=== PATIENT | female | born 1975 | race Caucasian/White ===

== ENCOUNTER 2017-06-24 01:54 | Emergency (ER) | payer BC ==
[2017-06-24] MEDS ORDERED: Sodium Chloride 0.9% 1,000 ML PRIMARY IV ONE ×2 (02:23→03:35)
[2017-06-24] MEDS ORDERED: NORMAL SALINE 10 ML SYRINGE FLUSH IVP PRN (02:23)
[2017-06-24] MEDS ORDERED: KETOROLAC 30 MG/1 ML VIAL IVP ONE (02:23)
[2017-06-24] MEDS ORDERED: TAMSULOSIN 0.4 MG CAPSULE PO ONE (02:25)
[2017-06-24 02:41] LABS: BASOPHILS # (AUTO) 0.07 10*3/UL; BASOPHILS % (AUTO) 0.6 % (0-1); EOSINOPHILS # (AUTO) 0.32 10*3/UL; HEMATOCRIT 39.8 % (37.0-47.0); HEMOGLOBIN 13.3 g/dL (12.0-16.0); LYMPHOCYTES # (AUTO) 1.59 10*3/uL; MEAN CORPUSCULAR HGB CONC 33.4 g/dL (33-37); MEAN CORPUSCULAR VOLUME 89.6 FL (81-99); MEAN PLATELET VOLUME 8.6 FL (7.4-12.2); MONOCYTES # (AUTO) 0.68 10*3/UL (0.3-0.8); MONOCYTES % (AUTO) 6.3 % (5-15); NEUTROPHILS # (AUTO) 8.14 10*3/UL; NEUTROPHILS % (AUTO) 75.2 % (50-80); RED BLOOD COUNT 4.44 10^6/uL (4.20-5.40)
[2017-06-24 02:46] LABS: PLATELET MORPHOLOGY COMMENT NORMAL MORPHOLOGY (NORM); RBC MORPHOLOGY COMMENT NORMAL MORPHOLOGY (NORM); WBC MORPHOLOGY COMMENT NORMAL MORPHOLOGY (NORM)
[2017-06-24 02:50] LABS: BLOOD UREA NITROGEN 21 mg/dL (7-22); CALCIUM 8.7 mg/dL (8.7-10.7); EST GLOMERULAR FILTRATION > 60 (>60 ml/min/1.73m(2))
[2017-06-24 03:08] VITALS: RESP 16; TEMP 98.1
--- NOTE | 2017-06-24 03:51 | DI ---
HISTORY: Low back pain. COMPARISON: None available. TECHNIQUE: Contiguous axial unenhanced images of the abdomen and pelvis were obtained from the lung bases through the ischial tuberosities. The images were then submitted for interpretation. FINDINGS: The heart is within normal limits. No acute pathology is seen at the lung bases. The liver is grossly unremarkable. The spleen is within normal limits. Multiple layering peripheral ly calcified gallstones are seen in the gallbladder ranging in size from punctate up to 8 mm. There is no evidence of acute cholecystitis. There is no biliary ductal dilatation. The pancreas and adre nal glands are unremarkable. The kidneys are normal in size and shape. There are at least 2 nonobst ructing calculi in the left kidney ranging in size from punctate up to 2 mm. There is mild asymmetri c pelvocaliectasis. Additionally, there is asymmetric left ureteral prominence and surrounding fat s tranding, raising the possibility of a recently passed stone. There is a faint punctate hyperdensity at the expected location of the left ureterovesical junction, which could reflect a calculus (series 2, image 134). Otherwise, no ureteral or urinary bladder calculi are seen. Several faint punctate hyperdensities are seen in the midportion of the right kidney, which could reflect nonobstructing nicole culi; otherwise, the right kidney is grossly unremarkable. The imaged bowel, mesentery, and omentum are unremarkable without evidence of obstruction or perforat ion. The appendix is not clearly identified, though there is no secondary evidence of acute appendic itis. There is no lymphadenopathy by size criteria. There is no ascites. No acute skeletal pathology is seen. IMPRESSION: 1. Constellation of findings in the left kidney and ureter are characteristic for recently passed sto ne. A punctate hyperdensity at the expected location of the left ureterovesical junction could refle ct a calculus. Several additional nonobstructing calculi are seen in the left kidney. 2. Several possible punctate nonobstructing calculi are seen in the right kidney, without hydronephro sis. 3. Cholelithiasis without evidence of acute cholecystitis.
[2017-06-24] MEDS ORDERED: HYDROcodone-APAP 10 MG-325 MG TABLET PO PRN (04:17)
[2017-06-24] MEDS ORDERED: Ondansetron ODT Tab 4 MG TAB PO ONE (04:25)
[2017-06-24 04:28] LABS: CLARITY,URINE SLIGHTLY CLOUDY (CLEAR); COLOR,URINE YELLOW; URINE SAMPLE TYPE CLEAN CATCH URINE
[2017-06-24 04:29] LABS: BILIRUBIN,URINE NEGATIVE (NEG); GLUCOSE, URINE (UA) NEGATIVE (NEG); NITRATE,URINE NEGATIVE (NEG); OCCULT BLOOD,URINE MODERATE (NEG); PROTEIN,URINE NEGATIVE (NEG); UROBILINOGEN,URINE 0.2 EU/dL (0.2)
[2017-06-24] MEDS ORDERED: Ondansetron ODT Tab 4 MG TAB PO SCH (04:30)
[2017-06-24 04:38] LABS: BACTERIA,URINE FEW; SQUAMOUS EPITHELIAL CELL,UR MANY; URINE CRYSTALS MODERATE
--- NOTE | 2017-06-24 07:37 | PDOC ---
Abdomen/Flank HPI - General Chief Complaint: Genitourinary Complaint Stated Complaint: UNABLE TO VOID, LOW BACK PAIN, N/V Date Seen by Provider: 06/24/17 Time Seen by Provider: 02:10 Source: POSITIVE: Patient Exam Limitations: POSITIVE: No limitations Nurse's Notes Reviewed & Considered: Yes - History of Present Illness Initial Comments: The patient is a 42-year-old female. She states that around 11 PM she developed a sensation of having to urinate urgently and shortly thereafter developed left flank pain. The patient is here visiting the [facility] from [facility]. She rated the intensity of her pain as a 7-8 on a scale of 10 she's not had any fever. Mild dysuria. Nausea but no vomiting. No hematemesis, melena, hematochezia, or gross hematuria. Patient has a history of breast cancer treated with lumpectomy and is presently on tamoxifen Body Location Affected: REPORTS: Back (Left flank pain) Timing: REPORTS: Abrupt Duration: 1-3 hours (Approximately 3 hours ERP SPECIALIST) Severity: Moderate Quality: REPORTS: "Pain" Abdominal Pain Onset Location: REPORTS: Flank (Left) Abdominal Pain Radiation: REPORTS: No radiation Context: REPORTS: Rest (Onset while resting) Modifying Factors: improves with: Nothing Associated Symptoms: REPORTS: Back pain (Left flank), Nausea, Other (Urinary urgency) Similar Symptoms Previously: No Recent Care Received: REPORTS: Denies Any Prior Injuries Related to Current Complaint?: No - Patient Allergies Allergies/Adverse Reactions: Allergies Allergy/AdvReac Type Severity Reaction Status Date / Time Iodinated Contrast- Oral and AdvReac HIVES Verified 06/24/17 02:33 IV Dye Past Medical History - heen HEENT History: Denies History Cardiovascular History: Denies History Respiratory History: Denies History Gastrointestinal History: Denies History Genitourinary History: Denies History Endocrine History: Denies History Musculoskeletal History: Denies History Neurological History: Denies History Blood Disorders: Denies History Psychiatric History: Denies History History of Sexually Transmitted Diseases: No Female Reproductive History: Denies History Obstetrical History: Denies History Cancer History: Breast In Past Year Been Physically Harmed or Verbally Threatened: No History of MDRO: No History of Other Communicable Diseases: No Tobacco Use: Never Smoker Alcohol Use: None Substance Use Type: None Previous Surgical History: No Anesthesia Reactions: No Malignant Hyperthermia: No Family History of Malignant Hyperthermia: No Significant Family History: No pertinent family hx Past Medical History Reviewed: Reviewed - No Changes ROS - Limitations ROS Limitations: No Limitations Constitution: REPORTS: Denies Symptoms Cardiovascular: REPORTS: Denies Cardiac Symptoms Respiratory: REPORTS: Denies Resp Symptoms Neurological: REPORTS: Denies Neuro Symptoms Gastrointestinal: REPORTS: Denies GI Symptoms Endocrine: REPORTS: Denies Symptoms Musculoskeletal: REPORTS: Denies MS Symptoms Genitourinary: REPORTS: Flank Pain (Left), Other (urgency) Eyes: REPORTS: Denies Symptoms ENT: REPORTS: Denies Symptoms Skin: REPORTS: Denies Skin Symptoms Lympathic: REPORTS: Denies Lympathic Symptoms Immunologic: POSITIVE: Denies Symptoms Psychiatric: POSITIVE: Denies Psych Symptoms Abdominal/Flank Pain PE - General Appearance General Appearance: POSITIVE: Alert, Cooperative, No Acute Distress, No Evidence of Trauma - HEENT HEENT: POSITIVE: Head Inspection Nml, Eyes Inspection Nml, Ears Inspection Nml, Nose Inspection Nml, Oral/Dental Inspect. Nml, Pharynx Inspect. Nml, PERRL, EOMI - Neck Neck: POSITIVE: Normal Inspection, No Apparent Injury - Respiratory Respiratory: POSITIVE: No Respiratory Distress, Breath Sounds Normal, Chest Non- Tender - Cardiovascular Cardiovascular: POSITIVE: Regular Rate and Rhythm, Heart Sounds Normal, Equal Pulses, Strong Pulses Peripheral Pulses: Radial (R): 2+, Radial (L): 2+ - Chest Chest: POSITIVE: Non Tender - Abdomen Abdomen: Soft: (All Quadrants), Normal Bowel Sounds: (All Quadrants), Denies Tenderness: (All Quadrants), No Splenomegaly: (All Quadrants), No Hepatomegaly: (All Quadrants), No Guarding: (All Quadrants), No Rebound: (All Quadrants), No Palpable Pulse: (All Quadrants), No Palpabale Mass: (All Quadrants), No Distention: (All Quadrants), No Rigidity: (All Quadrants) - Back Back: POSITIVE: CVA Tenderness (L) (Mild) - Skin Skin: POSITIVE: Intact, Normal For Race, Warm, Dry, No Rash - Extremities Extremity: Non-Tender: (All Extremities), Normal ROM: (All Extremities), Normal Inspection: (All Extremities) - Neurological Neurological: POSITIVE: Oriented X3, 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 Radiologist also reports findings compatible with a recently passed ureteral stone. Lab Results Reviewed: Yes Lab Results:: Laboratory Results 06/24/17 06/24/17 06/24/17 Range/Units 02:25 02:35 04:15 WBC 10.82 H (4.8-10.8) 10^3/uL RBC 4.44 (4.20-5.40) 10^6/uL Hgb 13.3 (12.0-16.0) g/dL Hct 39.8 (37.0-47.0) % MCV 89.6 (81-99) FL MCH 30.0 (27-31) PG MCHC 33.4 (33-37) g/dL RDW Std Deviation 42.8 (39-50) fL RDW Coeff of Hubert 13.2 (11.5-14.5) % Plt Count 271 (140-350) 10*3/uL MPV 8.6 (7.4-12.2) FL Immature Gran % (Auto) 0.2 (0-5) % Neut % (Auto) 75.2 (50-80) % Lymph % (Auto) 14.7 (10-50) % [place] % (Auto) 6.3 (5-15) % Eos % (Auto) 3.0 (0-8) % Baso % (Auto) 0.6 (0-1) % Immature Gran # (Auto) 0.02 10*3/UL Neut # (Auto) 8.14 10*3/UL Lymph # (Auto) 1.59 10*3/uL [place] # (Auto) 0.68 (0.3-0.8) 10*3/UL Eos # (Auto) 0.32 10*3/UL Baso # (Auto) 0.07 10*3/UL WBC Morphology Comment Normal morphology (NORM) Plt Morphology Comment Normal morphology (NORM) RBC Morph Comment Normal morphology (NORM) Sodium 140 (135-145) meq/L Potassium 3.8 (3.8-5.2) meq/L Chloride 106 (98-112) meq/L Carbon Dioxide 25 (23-33) meq/L Anion Gap 9 (5-20) BUN 21 (7-22) mg/dL Creatinine 1.0 (0.50-1.20) mg/dL Estimated GFR > 60 (>60 ml/min/1.73m(2)) BUN/Creatinine Ratio 21.00 H (6-20) Glucose 141 H (78-110) mg/dL Calculated Osmolality 294.0 H (267-292) mOsm/kg Calcium 8.7 (8.7-10.7) mg/dL Total Bilirubin 0.4 (0.3-1.2) mg/dL AST 29 (8-39) IU/L ALT 44 (9-52) IU/L Alkaline Phosphatase 79 (38-126) IU/L Total Protein 7.0 (6.1-8.0) g/dL Albumin 4.0 (3.5-4.8) g/dL Globulin 3.1 (2.50-4.10) g/dL Albumin/Globulin Ratio 1.20 L (1.3-2.0) mg/g Serum HCG, Qual Negative Ur Collection Type Cancelled Clean catch urine Urine Color Cancelled Yellow Urine Clarity Cancelled Slightly cloudy Urine pH Cancelled 8.0 Ur Specific [place] Cancelled 1.015 Urine Protein Cancelled Negative Urine Glucose (UA) Cancelled Negative Urine Ketones Cancelled Negative Urine Occult Blood Cancelled Moderate H Urine Nitrate Cancelled Negative Urine Bilirubin Cancelled Negative Urine Urobilinogen Cancelled 0.2 Ur Leukocyte Esterase Cancelled Trace Urine RBC Cancelled 1-3 Urine WBC Cancelled 1-3 Ur Squamous Epith Cells Cancelled Many Ur Renal Epithelial Cell Cancelled None Urine Crystals Cancelled Moderate Urine Bacteria Cancelled Few Urine Casts Cancelled None Urine Mucus Cancelled None Urine Trichomonas Cancelled None Urine Yeast Cancelled None Ur Culture Indicated? Cancelled Culture not set - Patient's Progress Pain Medication Addressed: POSITIVE: Yes (Patient given ketorolac and Dilaudid with good pain relief) School/Work Release Addressed: POSITIVE: Not Applicable Re-examine Time: 04:20 Re-Examine Comment: Patient asymptomatic on discharge. Laboratory and CT scan findings discussed with patient. Status: POSITIVE: Improved, Re-Examined - Consult Counseled: POSITIVE: Patient, RE: Lab Results, RE: Radiology Results, RE: DX, RE : Need for F/U Patient Care Time - Estimated PCT Patient Care Time (In Minutes): 60 Vital Signs - Recent Vital Signs Vital Signs: Vital Signs (Last 8 hours) Temp Pulse Resp BP Pulse Ox 06/24/17 01:54 98.1 F 74 16 126/74 98 - VS Reviewed Vital Signs Reviewed: Yes Discharge Clinical Impression: Ureterolithiasis Discharge Disposition: Discharged to Home Condition: Good Patient Instructions Given at Discharge: Ureteral Stones (ED) Additional Instructions: You are passing a kidney stone. Please strain your urine and check for the passage of the stone. Flomax, one daily. [place], one every 4 hours as necessary for pain. Return here anytime if condition worsens, especially if you have fevers or chills. Follow-up with your primary care provider or urologist in [place] if you have not passed her stone in 10 days. Follow Up With: NONE,NONE [Primary Care Provider] - (Instructions as above. Return as necessary.)
== END 2017-06-24 04:30 | disposition home or self-care (01) ==
LOC: ER 01:54
DX: N20.1 Calculus of ureter (principal); R10.12 Left upper quadrant pain; M54.89 Other dorsalgia; R11.0 Nausea; R30.0 Dysuria; R39.15 Urgency of urination
CPT/HCPCS: 74176; 80053; 81001; 84703; 85025; 96361; 96374; 99283 ×2; J1885; J7030